=== PATIENT | female | born 2000 | race American Indian/Alaskan Native ===

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

== ENCOUNTER 2021-02-27 15:33 | Inpatient (IN) | payer MEDICAID ==
[2021-02-27] MEDS ORDERED: HYDROmorphone 0.5 MG/0.5 ML Syringe IVPUSH ONE (15:52)
--- NOTE | 2021-02-27 15:58 | EDM.PDOC ---
ED HPI GENERAL MEDICAL PROBLEM - General Chief Complaint: Abdominal Pain Stated Complaint: MEDICAL VIA NORTH Time Seen by Provider: 02/27/21 15:40 Source of Information: Reports: Patient, EMS History Limitations: Reports: No Limitations - History of Present Illness INITIAL COMMENTS - FREE TEXT/NARRATIVE: 20 yo NA female presents via EMS with RUQ abdominal pain that began several hrs after eating several large brownies. She has a pHx of biliary colic. She vomited once since the onset between 7 and 8 am today. No hematemesis. Onset: Today, Sudden Onset Date: 02/27/21 Onset Time: 07:30 Duration: Hour(s):, Constant Location: Reports: Abdomen (RUQ) Quality: Reports: Ache Severity: Moderate Improves with: Reports: Medication (Got transiet full relief with 100 mcg of Fentanyl per EMS) Worsens with: Reports: Other (unsure) Context: Reports: Other (See HPI) Associated Symptoms: Reports: Nausea/Vomiting. 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: Reports: Other (see below) (IV Fentanyl) - Related Data Allergies Allergy/AdvReac Type Severity Reaction Status Date / Time No Known Allergies Allergy Verified 02/27/21 15:51 Home Meds: Home Meds Etonogestrel [Nexplanon] 68 mg SQ DAILY 05/04/20 [History] Past Medical History - Past Health History Medical/Surgical History: Denies Medical/Surgical History Psychiatric History: Reports: Suicide Attempt - Past Surgical History HEENT Surgical History: Reports: Myringotomy w Tube(s) Social & Family History - Caffeine Use Caffeine Use Comment: unknown ED ROS GENERAL - Review of Systems Review Of Systems: See Below Constitutional: Reports: No Symptoms HEENT: Reports: No Symptoms Respiratory: Reports: No Symptoms Cardiovascular: Reports: No Symptoms GI/Abdominal: Reports: Abdominal Pain, Nausea, Vomiting (x 1). Denies: Black Stool, Bloody Stool, Constipation, Diarrhea, Distension, Hematemesis, Hematochezia, Melena : Reports: No Symptoms Musculoskeletal: Reports: No Symptoms Skin: Reports: No Symptoms Neurological: Reports: No Symptoms ED EXAM, GI/ABD - Physical Exam Exam: See Below Exam Limited By: No Limitations General Appearance: Alert, WD/WN, No Apparent Distress Eyes: Bilateral: Normal Appearance Ears: Normal External Exam, Normal Canal, Hearing Grossly Normal Nose: Normal Inspection, No Blood Throat/Mouth: Normal Inspection, Normal Lips, Normal Oropharynx, Normal Voice, No Airway Compromise Head: Atraumatic, Normocephalic Neck: Normal Inspection Respiratory/Chest: No Respiratory Distress, Lungs Clear, Normal Breath Sounds, No Accessory Muscle Use Cardiovascular: Regular Rate, Rhythm, No Edema GI/Abdominal Exam: Normal Bowel Sounds, Soft, Non-Tender, No Distention Back Exam: Normal Inspection. No: CVA Tenderness (R), CVA Tenderness (L) Extremities: Normal Inspection, Normal Range of Motion, Non-Tender, No Pedal Edema. No: Pedal Edema Neurological: Alert, Oriented, CN II-XII Intact, Normal Cognition, No Motor/Sensory Deficits Psychiatric: Normal Affect, Normal Mood Skin Exam: Warm, Dry, Intact, Normal Color, No Rash Course - Vital Signs Text/Narrative:: Dr. Brennan Moran called @ [id number] Last Recorded V/S: Last Vital Signs Temp 36.4 C 02/27/21 15:57 Pulse 66 02/27/21 15:57 Resp 18 02/27/21 15:57 BP 146/91 H 02/27/21 15:57 Pulse Ox 97 02/27/21 15:57 - Orders/Labs/Meds Orders: Active Orders 24 hr Category Date Time Status Abdomen Ltd [US] Stat Exams 02/27/21 16:22 Ordered Labs: Laboratory Tests 02/27/21 02/27/21 02/27/21 Range/Units 15:57 16:05 16:05 WBC 10.2 (4.5-11.0) K/uL RBC 5.03 (3.30-5.50) M/uL Hgb 14.9 (12.0-15.0) g/dL Hct 44.4 (36.0-48.0) % MCV 88 (80-98) fL MCH 30 (27-31) pg MCHC 34 (32-36) % Plt Count 407 H (150-400) K/uL Sodium 143 (140-148) mmol/L Potassium 3.9 (3.6-5.2) mmol/L Chloride 105 (100-108) mmol/L Carbon Dioxide 24 (21-32) mmol/L Anion Gap 13.7 (5.0-14.0) mmol/L BUN 6 L (7-18) mg/dL Creatinine 0.6 (0.6-1.0) mg/dL Est Cr Clr Drug Dosing 152.13 mL/min Estimated GFR (MDRD) > 60 (>60) Glucose 102 (74-106) mg/dL Calcium 8.9 (8.5-10.1) mg/dL Total Bilirubin 0.4 D (0.2-1.0) mg/dL AST 30 (15-37) U/L ALT 33 (12-78) U/L Alkaline Phosphatase 96 (46-116) U/L C-Reactive Protein (0.0-0.3) mg/dL Total Protein 7.5 (6.4-8.2) g/dL Albumin 3.4 (3.4-5.0) g/dL Globulin 4.1 H (2.3-3.5) g/dL Albumin/Globulin Ratio 0.8 L (1.2-2.2) Lipase (73-393) U/L Urine HCG, Qual Negative 02/27/21 Range/Units 16:05 WBC (4.5-11.0) K/uL RBC (3.30-5.50) M/uL Hgb (12.0-15.0) g/dL Hct (36.0-48.0) % MCV (80-98) fL MCH (27-31) pg MCHC (32-36) % Plt Count (150-400) K/uL Sodium (140-148) mmol/L Potassium (3.6-5.2) mmol/L Chloride (100-108) mmol/L Carbon Dioxide (21-32) mmol/L Anion Gap (5.0-14.0) mmol/L BUN (7-18) mg/dL Creatinine (0.6-1.0) mg/dL Est Cr Clr Drug Dosing mL/min Estimated GFR (MDRD) (>60) Glucose (74-106) mg/dL Calcium (8.5-10.1) mg/dL Total Bilirubin (0.2-1.0) mg/dL AST (15-37) U/L ALT (12-78) U/L Alkaline Phosphatase (46-116) U/L C-Reactive Protein 0.95 H (0.0-0.3) mg/dL Total Protein (6.4-8.2) g/dL Albumin (3.4-5.0) g/dL Globulin (2.3-3.5) g/dL Albumin/Globulin Ratio (1.2-2.2) Lipase 75 (73-393) U/L Urine HCG, Qual Meds: Medications Discontinued Medications Generic Name Dose Route Start Last Admin Trade Name Ignacio PRN Reason Stop Dose Admin Hydromorphone HCl 0.5 mg 02/27/21 15:52 02/27/21 16:17 Hydromorphone 0.5 Mg/0.5 Ml Syringe IVPUSH 02/27/21 15:53 0.5 mg ONETIME ONE Administration - Radiology Interpretation Free Text/Narrative:: GB ultrasound-stones, no impaction, common duct slightly increased in size. Departure - Departure Time of Disposition: 17:25 Disposition: Admitted As Inpatient 67 Condition: Fair Clinical Impression: Biliary colic - Discharge Information *PRESCRIPTION DRUG MONITORING PROGRAM REVIEWED*: Not Applicable *COPY OF PRESCRIPTION DRUG MONITORING REPORT IN PATIENT SVETA: Not Applicable Instructions: Biliary Colic, Adult Referrals: PCP,None [Primary Care Provider] - Forms: ED Department Discharge Sepsis Event Note (ED) - Focused Exam Vital Signs: Vital Signs Temp Pulse Resp BP Pulse Ox 02/27/21 15:57 36.4 C 66 18 146/91 H 97 02/27/21 15:53 36.4 C 66 18 146/91 H 97 - My Orders Last 24 Hours: My Active Orders 02/27/21 16:22 Abdomen Ltd [US] Stat - Assessment/Plan Last 24 Hours: My Active Orders 02/27/21 16:22 Abdomen Ltd [US] Stat
[2021-02-27] MEDS ORDERED: Ondansetron 4 MG/2 ML SDV IVPUSH PRN (18:10)
[2021-02-27] MEDS ORDERED: Ampicillin/Sulbactam Na 3 GM in Sodium Chloride 0.9% 100 ML IV SCH (18:15)
[2021-02-27] MEDS: Dextrose 5%-Lactated Ringers 1,000 ML IV SCH (18:42)
[2021-02-27] MEDS: HYDROmorphone 1 MG/ML Syringe IV PRN (18:45)
[2021-02-27 22:39] LABS: CORONAVIRUS COVID-19 NAA NEGATIVE (NEGATIVE)
[2021-02-28] MEDS: HYDROmorphone 1 MG/ML Syringe IV PRN ×2 (02:12→05:59)
[2021-02-28] MEDS: Dextrose 5%-Lactated Ringers 1,000 ML IV SCH (03:18)
[2021-02-28] MEDS ORDERED: Bupivacaine 0.5%/EPINEPHrine 1:200,000 50 ML MDV ONE (07:08)
[2021-02-28] MEDS ORDERED: Rocuronium 50 MG/5 ML Vial ONE (07:19)
[2021-02-28] MEDS ORDERED: Propofol 200 MG/20 ML SDV ONE (07:19)
[2021-02-28] MEDS ORDERED: Ondansetron 4 MG/2 ML SDV ONE (07:19)
[2021-02-28] MEDS ORDERED: Neostigmine Methylsulfate 1 MG/ML 5 ML Syringe ONE (07:19)
[2021-02-28] MEDS ORDERED: Succinylcholine 200 MG/10 ML MDV ONE (07:19)
[2021-02-28] MEDS ORDERED: Glycopyrrolate 0.2 MG/ML 5 ML MDV ONE (07:19)
[2021-02-28] MEDS ORDERED: Dexamethasone 4 MG/ML SDV ONE (07:19)
[2021-02-28] MEDS ORDERED: fentaNYL 250 MCG/5 ML SDV ONE ×2 (07:21→08:43)
[2021-02-28] MEDS ORDERED: Ampicillin/Sulbactam Na 3 GM in Sodium Chloride 0.9% 100 ML IV ONE (08:00)
[2021-02-28] MEDS ORDERED: Ketorolac 60 MG/2 ML SDV ONE (08:59)
[2021-02-28] MEDS ORDERED: Lactated Ringers 1,000 ML ONE (09:05)
[2021-02-28] MEDS ORDERED: Dextrose 5%-Lactated Ringers 1,000 ML IV SCH (10:30)
[2021-02-28] MEDS ORDERED: HYDROmorphone 1 MG/ML Syringe IV PRN (11:00)
[2021-02-28] MEDS ORDERED: HYDROmorphone 0.5 MG/0.5 ML Syringe IVPUSH PRN (11:00)
[2021-02-28] MEDS: Acetaminophen/HYDROcodone 325-5 MG Tab PO PRN ×3 (11:36→20:38)
[2021-02-28] MEDS: Ampicillin/Sulbactam Na 3 GM in Sodium Chloride 0.9% 100 ML IV SCH ×2 (13:22→19:55)
[2021-02-28] MEDS ORDERED: Pantoprazole 40 MG Vial IVPUSH SCH (14:00)
[2021-03-01] MEDS: Ampicillin/Sulbactam Na 3 GM in Sodium Chloride 0.9% 100 ML IV SCH (02:21)
[2021-03-01 03:30] VITALS: BP 124/44; PULSE 68
[2021-03-01] MEDS: Acetaminophen/HYDROcodone 325-5 MG Tab PO PRN (05:31)
--- NOTE | 2021-03-02 09:02 | US ---
Abdomen Ltd CLINICAL HISTORY: Right upper quadrant pain COMPARISON: April 2020. TECHNIQUE: Real-time images were obtained through the right upper quadrant. FINDINGS: The liver is free of mass or biliary dilatation. There is normal hepatic echotexture. There is upper limits of normal size at 16 cm in length The gallbladder contains multiple mobile stones. The common bile duct measures 6 mm. The pancreas is moderately obscured. The right kidney measures 11.3 x 4.0 x 5.0 cm. The IVC is normal. IMPRESSION: Cholelithiasis Common bile duct measures at upper limits of normal at 6 mm
--- NOTE | 2021-03-06 16:37 | DISCH ---
FINAL DIAGNOSES: 1. Subacute cholecystitis and cholelithiasis. 2. Enlarged shonna hepatis lymph node. 3. Incarcerated umbilical hernia. OPERATIVE PROCEDURES: Diagnostic laparoscopy with: 1. Cholecystectomy. 2. Excision of enlarged shonna hepatis lymph node. 3. Repair of incarcerated umbilical hernia that was done on 02/28. SUMMARY: This is a 20-year-old female presenting with ongoing right upper quadrant pain. Workup showed a thickened gallbladder wall with stones. The patient was admitted on IV antibiotics and subsequently underwent the above-noted procedures. The gallbladder was subacutely inflamed and contained multitude of variably sized stones, and there was enlarged lymph node in the shonna hepatis that was excised and the incarcerated umbilical hernia was likewise identified and repaired concurrently. Postoperatively, the patient has had no significant problems. She is tolerating a diet and will be sent home with [place] 5/325 one to two tablets q.6 hours p.r.n. pain #30. Follow up with Terese Whipple at [facility] on 03/09/2021. /[id number]
--- NOTE | 2021-03-09 15:48 | OR ---
DATE OF PROCEDURE: 02/28/2021 SURGEON: Rei Moran MD PREOPERATIVE DIAGNOSIS: Acute cholecystitis and cholelithiasis. POSTOPERATIVE DIAGNOSES: 1. Subacute cholecystitis and cholelithiasis. 2. Incarcerated umbilical hernia. 3. Enlarged shonna hepatis lymph node. OPERATIVE PROCEDURES: Diagnostic laparoscopy with: 1. Cholecystectomy (89214). 2. Excision of shonna hepatis lymph node (80915). 3. Repair of incarcerated umbilical hernia ([id number]). ANESTHESIA: General. INDICATIONS FOR PROCEDURE: This is a 20-year-old admitted with a picture of acute or subacute cholecystitis. The plan is to proceed with diagnostic laparoscopy with cholecystectomy and other procedures as indicated. Potential need for an open approach was gone over, otherwise potential risks including bleeding, infection, injury to the common bile duct or adjacent viscera, problems with stones migrating into common bile duct requiring additional procedures for correction were gone over, and the patient wishes to proceed. DETAILS OF PROCEDURE: The patient was taken to the operating room and placed in a supine position. After general endotracheal anesthesia was induced, the abdomen was prepped and draped. A transverse infraumbilical incision was noted to have underlying it an area of incarcerated umbilical hernia, this contained some incarcerated preperitoneal fat. A 12 mm trocar was then placed directly through the center of the hernia, thus displacing the incarcerated preperitoneal fat into intraperitoneal location. Peritoneal cavity was inflated with 15 mmHg with CO2. Laparoscope was reinserted. No underlying trocar insertion site injuries were seen. A 12 mm epigastric trocar as well as single 5 mm right abdominal trocar was then placed. Bilateral transversus abdominis plane blocks were then also injected and the gallbladder then retracted anteriorly and laterally. Posterior to the gallbladder, there was quite a bit of inflammation, but no significant fluid accumulation. Over the shonna hepatis area, there was an enlarged reddened lymph node, this was excised and sent as a separate specimen. At this point, the gallbladder was retracted anteriorly and laterally, and dissection began on the gallbladder neck, continued around the gallbladder neck and cystic duct junction. Once that area as well as the adjacent cystic artery were both well delineated, we decided to take both structures with a surgical stapler. As the tissues were quite thickened and friable, this would provide a more secure closure. This was done with a NANO purple load. The gallbladder was then dissected off the gallbladder bed using Harmonic scalpel and delivered through the epigastric trocar site. Multiple small stones were present within the gallbladder. At this point, no further problems were noted. A drain was placed through the right lateral trocar site and positioned adjacent to the gallbladder bed and the camera port then brought back up to the epigastric site where the umbilical hernia sutures were placed with the endoscopic suture passer using 0 Vicryl stitch closing the umbilical hernia defect with transverse orientation. An additional stitch was then placed into the fascia in the epigastric site and the trocars were removed and the peritoneal cavity deflated. The incisions were closed with some 4-0 Vicryl skin stitch and dressing applied. The patient was taken to the recovery room in a satisfactory condition. Rei Moran MD /[id number]
== END 2021-03-01 08:40 | disposition home or self-care (01) | DRG 418 ==
LOC: JP.ED 15:33 → JP.MS 17:30
PROVIDERS: ADMIT Surgery; ATTEND Surgery
PROC: 0FT44ZZ Resection of Gallbladder, Percutaneous Endoscopic Approach (ICD-10-PCS; principal; 2021-02-28)
PROC: 0WQF4ZZ Repair Abdominal Wall, Percutaneous Endoscopic Approach (ICD-10-PCS; 2021-02-28)
PROC: 07BD4ZZ Excision of Aortic Lymphatic, Percutaneous Endoscopic Approach (ICD-10-PCS; 2021-02-28)
DX: K80.00 Calculus of gallbladder with acute cholecystitis without obstruction (principal); K42.0 Umbilical hernia with obstruction, without gangrene; Z79.899 Other long term (current) drug therapy; Z20.822 Contact with and (suspected) exposure to COVID-19; R59.0 Localized enlarged lymph nodes
CPT/HCPCS: 0241U; 36415; 76705; 76705-26; 80053; 81025; 82247; 83690; 84075; 85025; 85027; 86140; 88304; 96374; 99284; 99285-25; A9270-GY; C9113; J0171; J0295; J0330; J1100; J1170; J1885; J2405; J2704; J2710; J2795; J3010; J3490; J7120; J7121

== ENCOUNTER 2021-10-21 23:42 | Emergency (ER) | payer MEDICAID ==
[2021-10-22 00:08] VITALS: BP 112/71
--- NOTE | 2021-10-22 00:15 | EDM.PDOC ---
ED HPI GENERAL MEDICAL PROBLEM - General Chief Complaint: Drug or Alcohol Abuse Stated Complaint: MEDICAL VIA NORTH Time Seen by Provider: 10/22/21 00:00 Source of Information: Reports: EMS, Old Records History Limitations: Reports: Intoxication - History of Present Illness INITIAL COMMENTS - FREE TEXT/NARRATIVE: 21 yo NA female brought in from home by EMS for extreme intoxication. Family mentioned she was in a bathtub that did not have water in it. They don't know if she fell into it or just crawled in? EMS noted no sign of scalp wounds or swelling en route. Vitals were reportedly normal. Has a hx of alcohol abuse. 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: Reports: Other (see below) (none) Headache Pain Score (Numeric/FACES): 6 - Related Data Allergies Allergy/AdvReac Type Severity Reaction Status Date / Time No Known Allergies Allergy Verified 10/21/21 23:53 Home Meds: Home Meds Etonogestrel [Nexplanon] 68 mg SQ DAILY 05/04/20 [History] Past Medical History - Past Health History Medical/Surgical History: Denies Medical/Surgical History HEENT History: Reports: Impaired Vision Psychiatric History: Reports: Suicide Attempt Endocrine/Metabolic History: Reports: Obesity/BMI 30+ - Past Surgical History Head Surgeries/Procedures: Reports: None HEENT Surgical History: Reports: Myringotomy w Tube(s) Endocrine Surgical History: Reports: None Dermatological Surgical History: Reports: None Social & Family History - Caffeine Use Caffeine Use: Reports: Coffee, Energy Drinks, Soda, Tea Caffeine Use Comment: unknown - Alcohol Use Date of Last Drink: 10/21/21 Time of Last Drink: 23:00 ED ROS GENERAL - Review of Systems Review Of Systems: Unable To Obtain Reason Not Obtained: due to extreme intoxication Constitutional: Reports: No Symptoms ED EXAM, GENERAL - Physical Exam Exam: See Below Exam Limited By: No Limitations General Appearance: WD/WN, No Apparent Distress, Lethargic, Obese Eye Exam: Bilateral Eye: Normal Inspection, PERRL Ears: Normal External Exam, Normal Canal, Hearing Grossly Normal, Normal TMs Ear Exam: Bilateral Ear: Auricle Normal, Canal Normal, TM normal Nose: Normal Inspection, No Blood Throat/Mouth: Normal Inspection, Normal Lips, Normal Voice, No Airway Compromise Head: Atraumatic, Normocephalic Neck: Normal Inspection, Supple, Non-Tender Respiratory/Chest: No Respiratory Distress, Lungs Clear, Normal Breath Sounds, No Accessory Muscle Use Cardiovascular: Regular Rate, Rhythm, No Edema GI/Abdominal: Soft, Non-Tender Back Exam: Normal Inspection Extremities: Normal Inspection, Normal Range of Motion, Non-Tender, No Pedal Edema Neurological: CN II-XII Intact, No Motor/Sensory Deficits, Slow to Respond Psychiatric: Flat Affect Skin Exam: Warm, Dry, Intact, Normal Color, No Rash Course - Vital Signs Last Recorded V/S: Last Vital Signs Temp 36.9 C 10/21/21 23:53 Pulse 84 10/22/21 03:27 Resp 18 10/22/21 03:27 BP 112/71 10/21/21 23:53 Pulse Ox 94 L 10/22/21 03:27 - Orders/Labs/Meds Orders: Active Orders 24 hr Category Date Time Status DRUG SCREEN, URINE [URCHEM] Stat Lab 10/22/21 00:13 Ordered Labs: Laboratory Tests 10/21/21 Range/Units 23:55 Ethyl Alcohol 198 mg/dL - Re-Assessments/Exams Free Text/Narrative Re-Assessment/Exam: 10/22/21 06:07 Is up and walking about the ER this AM with no complaints and is steady on her feet. Will call her sister to come and pick her up. Departure - Departure Time of Disposition: 07:00 Disposition: Home, Self-Care 01 Condition: Fair Clinical Impression: Alcohol intoxication Qualifiers: Complication of substance-induced condition: uncomplicated Qualified Code(s): F10.920 - Alcohol use, unspecified with intoxication, uncomplicated - Discharge Information *PRESCRIPTION DRUG MONITORING PROGRAM REVIEWED*: Not Applicable *COPY OF PRESCRIPTION DRUG MONITORING REPORT IN PATIENT SVETA: Not Applicable Instructions: Binge-Drinking Information, Adult Referrals: PCP,None [Primary Care Provider] - Forms: ED Department Discharge Additional Instructions: Learn to control your alcohol use or you will face injury or illness. Discuss with your doctor if you are not able to control alcohol use. Sepsis Event Note (ED) - Evaluation Sepsis Screening Result: No Definite Risk - Focused Exam Vital Signs: Vital Signs Temp Pulse Resp BP Pulse Ox 10/22/21 03:27 84 18 94 L 10/21/21 23:53 36.9 C 80 18 112/71 91 L - My Orders Last 24 Hours: My Active Orders 10/22/21 00:13 DRUG SCREEN, URINE [URCHEM] Stat - Assessment/Plan Last 24 Hours: My Active Orders 10/22/21 00:13 DRUG SCREEN, URINE [URCHEM] Stat
[2021-10-22 03:27] VITALS: PULSE 84
== END 2021-10-22 06:24 | disposition home or self-care (01) ==
LOC: JP.ED 23:42
DX: F10.129 Alcohol abuse with intoxication, unspecified (principal); E66.9 Obesity, unspecified; Z68.30 Body mass index [BMI] 30.0-30.9, adult; Y90.6 Blood alcohol level of 120-199 mg/100 ml
CPT/HCPCS: 36415; 80305-QW; 80307; 99284

== ENCOUNTER 2021-12-26 20:18 | Emergency (ER) | payer MEDICAID ==
[2021-12-26 20:39] VITALS: BP 152/102; PULSE 84
[2021-12-26] MEDS ORDERED: Lidocaine 4% Top Soln 50 ML Bottle TOP ONE (20:57)
== END 2021-12-26 21:50 | disposition home or self-care (01) ==
LOC: JP.ED 20:18
DX: H66.001 Acute suppurative otitis media without spontaneous rupture of ear drum, right ear (principal)
CPT/HCPCS: 99282; A9270-GY

== ENCOUNTER 2022-09-20 05:19 | Emergency (ER) | payer MEDICAID ==
[2022-09-20 05:39] VITALS: BP 115/97; PULSE 99
== END 2022-09-20 07:23 | disposition home or self-care (01) ==
LOC: JP.ED 05:19
DX: F10.129 Alcohol abuse with intoxication, unspecified (principal); F17.210 Nicotine dependence, cigarettes, uncomplicated; E66.9 Obesity, unspecified; Z68.30 Body mass index [BMI] 30.0-30.9, adult
CPT/HCPCS: 36415; 80048; 80307; 85025; 99284

== ENCOUNTER 2023-09-18 18:29 | Emergency (ER) | payer MEDICAID ==
[2023-09-18 18:38] VITALS: BP 117/80; PULSE 103
[2023-09-18 20:37] LABS: BASOPHILS ABSOLUTE AUTO 0.04 K/uL (0.00-0.10); BASOPHILS PERCENT AUTO 0.6 % (0.1-1.3); EOSINOPHILS ABSOLUTE AUTO 0.04 K/uL (0.00-0.40); EOSINOPHILS PERCENT AUTO 0.6 % (0.0-5.4); HEMATOCRIT 38.9 % (34.3-46.0); HEMOGLOBIN 13.4 g/dL (11.2-15.5); IMMATURE GRAN PERCENT AUTO 0.3 % (0.0-0.7); LYMPHOCYTES ABSOLUTE AUTO 2.41 K/uL (0.8-3.3); LYMPHOCYTES PERCENT AUTO 35.7 % (11.4-47.7); MEAN CORPUSCULAR HEMOGLOBIN 30.8 pg (31.6-35.5); MEAN CORPUSCULAR HGB CONC 34.4 g/dL (31.6-35.5); MEAN CORPUSCULAR VOLUME 89.4 fL (81.4-99.0); MONOCYTES ABSOLUTE AUTO 0.24 K/uL (0.20-0.90); MONOCYTES PERCENT AUTO 3.6 % (3.3-12.6); NEUTROPHILS ABSOLUTE AUTO 4.01 K/uL (1.0-7.6); NEUTROPHILS PERCENT AUTO 59.2 % (40.0-78.1); PLATELET COUNT,PLT 358 K/uL (130-375); RED BLOOD CELL COUNT 4.35 M/uL (3.77-5.24); WHITE BLOOD CELL COUNT,WBC 6.8 K/uL (3.2-11.0)
[2023-09-18 20:39] LABS: IMMATURE GRAN ABSOLUTE AUTO 0.02 K/uL (0.00-0.23)
[2023-09-18 20:57] LABS: ANION GAP 7.5 mmol/L (5.0-14.0); CALCIUM 7.5 mg/dL (8.5-10.1); CREATININE 0.4 mg/dL (0.6-1.0); EST CRCL DRUG DOSING (CG) 222.54 mL/min; POTASSIUM,K 3.9 mmol/L (3.6-5.2)
== END 2023-09-19 | disposition home or self-care (01) ==
LOC: JP.ED 18:29
DX: F10.920 Alcohol use, unspecified with intoxication, uncomplicated (principal); F17.210 Nicotine dependence, cigarettes, uncomplicated; E66.9 Obesity, unspecified; Z68.25 Body mass index [BMI] 25.0-25.9, adult; Y90.6 Blood alcohol level of 120-199 mg/100 ml
CPT/HCPCS: 36415; 80048; 80307; 85025; 99284

== ENCOUNTER 2024-11-26 21:36 | Emergency (ER) | payer MEDICAID ==
[2024-11-26 22:12] VITALS: BP 146/99; PULSE 83
[2024-11-26] MEDS: Bupivacaine 0.5%/EPINEPHrine 1:200,000 50 ML MDV NERVRT ONE (22:25)
[2024-11-26] MEDS: Bupivacaine 0.5%/EPINEPHrine 1:200,000 50 ML MDV ONE (22:25)
== END 2024-11-26 22:25 | disposition home or self-care (01) ==
LOC: JP.ED 21:36
DX: K04.7 Periapical abscess without sinus (principal); E66.9 Obesity, unspecified; Z68.34 Body mass index [BMI] 34.0-34.9, adult; Z72.0 Tobacco use
CPT/HCPCS: 64400; 99282; J3490

== ENCOUNTER 2024-11-27 12:05 | Emergency (ER) | payer MEDICAID | END 2024-11-27 12:45 | disposition left against medical advice (07) | LOC: JP.ED 12:05 | DX: Z53.21 Procedure and treatment not carried out due to patient leaving prior to being seen by health care provider (principal) ==

== ENCOUNTER 2024-11-27 13:02 | Emergency (ER) | payer MEDICAID ==
[2024-11-27 13:39] VITALS: BP 168/99; PULSE 83
[2024-11-27] MEDS: fentaNYL 100 MCG/2 ML SDV IM ONE (14:10)
== END 2024-11-27 14:39 | disposition home or self-care (01) ==
LOC: JP.ED 13:02
DX: K08.89 Other specified disorders of teeth and supporting structures (principal); G89.29 Other chronic pain; E66.9 Obesity, unspecified; Z68.31 Body mass index [BMI] 31.0-31.9, adult
CPT/HCPCS: 96372; 99282; J3010

== ENCOUNTER 2025-02-12 23:00 | Emergency (ER) | payer MEDICAID ==
[2025-02-13 01:57] LABS: BASOPHILS ABSOLUTE AUTO 0.06 K/uL (0.00-0.10); BASOPHILS PERCENT AUTO 0.7 % (0.1-1.3); EOSINOPHILS ABSOLUTE AUTO 0.12 K/uL (0.00-0.40); EOSINOPHILS PERCENT AUTO 1.4 % (0.0-5.4); HEMATOCRIT 37.7 % (34.3-46.0); HEMOGLOBIN 13.2 g/dL (11.2-15.5); IMMATURE GRAN ABSOLUTE AUTO 0.02 K/uL (0.00-0.23); IMMATURE GRAN PERCENT AUTO 0.2 % (0.0-0.7); LYMPHOCYTES ABSOLUTE AUTO 2.81 K/uL (0.8-3.3); LYMPHOCYTES PERCENT AUTO 33.5 % (11.4-47.7); MEAN CORPUSCULAR HEMOGLOBIN 30.6 pg (31.6-35.5); MEAN CORPUSCULAR VOLUME 87.5 fL (81.4-99.0); MONOCYTES ABSOLUTE AUTO 0.51 K/uL (0.20-0.90); MONOCYTES PERCENT AUTO 6.1 % (3.3-12.6); NEUTROPHILS ABSOLUTE AUTO 4.88 K/uL (1.0-7.6); NEUTROPHILS PERCENT AUTO 58.1 % (40.0-78.1); PLATELET COUNT,PLT 305 K/uL (130-375); RED BLOOD CELL COUNT 4.31 M/uL (3.77-5.24); WHITE BLOOD CELL COUNT,WBC 8.4 K/uL (3.2-11.0)
[2025-02-13 02:03] VITALS: BP 128/80; PULSE 80
[2025-02-13 05:10] LABS: ANION GAP 9.7 mmol/L (5.0-14.0); BLOOD UREA NITROGEN,BUN 9 mg/dL (7-18); C-REACTIVE PROTEIN < 0.50 mg/dL (<0.50); CALCIUM 8.6 mg/dL (8.5-10.1); CARBON DIOXIDE,CO2 28 mmol/L (21-32); CHLORIDE,CL 105 mmol/L (100-108); CREATININE 0.6 mg/dL (0.6-1.0); EST CRCL DRUG DOSING (CG) 141.81 mL/min; ESTIMATED GFR 129 mL/min (>60); GLUCOSE RANDOM 107 mg/dL (74-106); POTASSIUM,K 3.7 mmol/L (3.6-5.2); SODIUM,NA 139 mmol/L (140-148)
== END 2025-02-13 03:00 | disposition home or self-care (01) ==
LOC: JP.ED 23:00
DX: F41.9 Anxiety disorder, unspecified (principal); E66.9 Obesity, unspecified; F17.210 Nicotine dependence, cigarettes, uncomplicated
CPT/HCPCS: 36415; 80048; 85025; 86140; 99283

== ENCOUNTER 2025-06-13 15:20 | Emergency (ER) | payer MEDICAID ==
[2025-06-13 16:04] LABS: BASOPHILS ABSOLUTE AUTO 0.04 K/uL (0.00-0.10); BASOPHILS PERCENT AUTO 0.5 % (0.1-1.3); EOSINOPHILS ABSOLUTE AUTO 0.07 K/uL (0.00-0.40); EOSINOPHILS PERCENT AUTO 0.8 % (0.0-5.4); IMMATURE GRAN ABSOLUTE AUTO 0.04 K/uL (0.00-0.23); IMMATURE GRAN PERCENT AUTO 0.5 % (0.0-0.7); LYMPHOCYTES ABSOLUTE AUTO 1.82 K/uL (0.8-3.3); LYMPHOCYTES PERCENT AUTO 20.6 % (11.4-47.7); MONOCYTES ABSOLUTE AUTO 0.37 K/uL (0.20-0.90); MONOCYTES PERCENT AUTO 4.2 % (3.3-12.6); NEUTROPHILS ABSOLUTE AUTO 6.49 K/uL (1.0-7.6); NEUTROPHILS PERCENT AUTO 73.4 % (40.0-78.1); PLATELET COUNT,PLT 322 K/uL (130-375); RED BLOOD CELL COUNT 4.60 M/uL (3.77-5.24); WHITE BLOOD CELL COUNT,WBC 8.8 K/uL (3.2-11.0)
[2025-06-13 16:25] LABS: A/G RATIO 0.9 (1.2-2.2); ALANINE AMINOTRANSFERASE,ALT 25 U/L (12-78); ASPARTATE AMNIOTRANSFERASE,AST 18 U/L (15-37); BILIRUBIN TOTAL 0.3 mg/dL (0.2-1.0); BLOOD UREA NITROGEN,BUN 7 mg/dL (7-18); CARBON DIOXIDE,CO2 28 mmol/L (21-32); CHLORIDE,CL 103 mmol/L (100-108); CREATININE 0.7 mg/dL (0.6-1.0); ESTIMATED GFR 124 mL/min (>60); GLUCOSE RANDOM 121 mg/dL (74-106); POTASSIUM,K 4.1 mmol/L (3.6-5.2); PROTEIN TOTAL,TP 7.5 g/dL (6.4-8.2); SODIUM,NA 138 mmol/L (140-148)
[2025-06-13 16:39] LABS: AMPHETAMINES SCREEN, URINE PRESUMPTIVE POSITIVE (NEGATIVE); METHADONE SCREEN, URINE NEGATIVE (NEGATIVE); METHAMPHETAMINES SCREEN, URINE PRESUMPTIVE POSITIVE (NEGATIVE); OXYCODONE SCREEN,URINE NEGATIVE (NEGATIVE); PROPOXYPHENE SCREEN,URINE NEGATIVE (NEGATIVE); THC SCREEN,URINE 50 NG/ML PRESUMPTIVE POSITIVE (NEGATIVE)
[2025-06-13 17:09] VITALS: BP 146/82; PULSE 91
== END 2025-06-13 17:42 | disposition home or self-care (01) ==
LOC: JP.ED 15:20
DX: F15.10 Other stimulant abuse, uncomplicated (principal); E66.9 Obesity, unspecified; Z68.31 Body mass index [BMI] 31.0-31.9, adult; Z79.899 Other long term (current) drug therapy
CPT/HCPCS: 36415; 80053; 80305-QW; 80307; 81025; 85025; 99282

== ENCOUNTER 2025-07-07 21:53 | Emergency (ER) | payer MEDICAID ==
[2025-07-07 22:03] VITALS: BP 135/89; PULSE 105
[2025-07-07 22:32] LABS: BASOPHILS ABSOLUTE AUTO 0.06 K/uL (0.00-0.10); BASOPHILS PERCENT AUTO 0.6 % (0.1-1.3); EOSINOPHILS ABSOLUTE AUTO 0.09 K/uL (0.00-0.40); EOSINOPHILS PERCENT AUTO 0.9 % (0.0-5.4); IMMATURE GRAN ABSOLUTE AUTO 0.03 K/uL (0.00-0.23); IMMATURE GRAN PERCENT AUTO 0.3 % (0.0-0.7); LYMPHOCYTES ABSOLUTE AUTO 2.37 K/uL (0.8-3.3); LYMPHOCYTES PERCENT AUTO 23.0 % (11.4-47.7); MONOCYTES ABSOLUTE AUTO 0.61 K/uL (0.20-0.90); MONOCYTES PERCENT AUTO 5.9 % (3.3-12.6); NEUTROPHILS ABSOLUTE AUTO 7.13 K/uL (1.0-7.6); NEUTROPHILS PERCENT AUTO 69.3 % (40.0-78.1); PLATELET COUNT,PLT 353 K/uL (130-375); RED BLOOD CELL COUNT 4.51 M/uL (3.77-5.24); WHITE BLOOD CELL COUNT,WBC 10.3 K/uL (3.2-11.0)
[2025-07-07 22:38] LABS: APPEARANCE,URINE CLOUDY (CLEAR); GLUCOSE,URINE NEGATIVE (NEGATIVE); OCCULT BLOOD,URINE NEGATIVE (NEGATIVE)
[2025-07-07] MEDS: Ketorolac 15 MG/ML SDV IVPUSH ONE (22:40)
[2025-07-07 22:47] LABS: SQUAMOUS EPITHELIAL CELLS,UR FEW /HPF; UROTHELIAL CELLS,URINE NOT SEEN /HPF
[2025-07-07 22:57] LABS: A/G RATIO 0.9 (1.2-2.2); ALANINE AMINOTRANSFERASE,ALT 20 U/L (12-78); ASPARTATE AMNIOTRANSFERASE,AST 14 U/L (15-37); BILIRUBIN TOTAL 0.3 mg/dL (0.2-1.0); BLOOD UREA NITROGEN,BUN 14 mg/dL (7-18); CARBON DIOXIDE,CO2 30 mmol/L (21-32); CHLORIDE,CL 104 mmol/L (100-108); CREATININE 0.8 mg/dL (0.6-1.0); EST CRCL DRUG DOSING (CG) 105.45 mL/min; ESTIMATED GFR 105 mL/min (>60); GLUCOSE RANDOM 102 mg/dL (74-106); POTASSIUM,K 4.2 mmol/L (3.6-5.2); PROTEIN TOTAL,TP 7.3 g/dL (6.4-8.2); SODIUM,NA 141 mmol/L (140-148)
[2025-07-07 23:28] LABS: AMPHETAMINES SCREEN, URINE PRESUMPTIVE POSITIVE (NEGATIVE); METHADONE SCREEN, URINE NEGATIVE (NEGATIVE); METHAMPHETAMINES SCREEN, URINE PRESUMPTIVE POSITIVE (NEGATIVE); OXYCODONE SCREEN,URINE NEGATIVE (NEGATIVE); PROPOXYPHENE SCREEN,URINE NEGATIVE (NEGATIVE); THC SCREEN,URINE 50 NG/ML PRESUMPTIVE POSITIVE (NEGATIVE)
[2025-07-12 08:32] LABS: APTIMA MEDIA TYPE Urine; C. TRACHOMATIS BY TMA Negative (Negative)
== END 2025-07-08 01:12 | disposition home or self-care (01) ==
LOC: JP.ED 21:53
DX: R10.9 Unspecified abdominal pain (principal); E66.9 Obesity, unspecified; Z68.32 Body mass index [BMI] 32.0-32.9, adult; Z04.41 Encounter for examination and observation following alleged adult rape; Z79.899 Other long term (current) drug therapy
CPT/HCPCS: 36415; 80053; 80305; 81001; 81025; 83690; 85025; 87491; 96361; 96372; 96374; 99284; A9270; J0696; J1885; J2003; J7030; Q0144; 81513; 87110; 87140; 87481; 87661

== ENCOUNTER 2025-08-05 21:09 | Emergency (ER) | payer MEDICAID ==
[2025-08-05 21:20] VITALS: BP 132/77; PULSE 104
[2025-08-05] MEDS: Naloxone 0.4 MG/ML SDV IVPUSH ONE (21:25)
[2025-08-05 21:31] LABS: BASOPHILS ABSOLUTE AUTO 0.05 K/uL (0.00-0.10); BASOPHILS PERCENT AUTO 0.6 % (0.1-1.3); EOSINOPHILS ABSOLUTE AUTO 0.03 K/uL (0.00-0.40); EOSINOPHILS PERCENT AUTO 0.3 % (0.0-5.4); IMMATURE GRAN ABSOLUTE AUTO 0.03 K/uL (0.00-0.23); IMMATURE GRAN PERCENT AUTO 0.3 % (0.0-0.7); LYMPHOCYTES ABSOLUTE AUTO 1.97 K/uL (0.8-3.3); LYMPHOCYTES PERCENT AUTO 22.3 % (11.4-47.7); MONOCYTES ABSOLUTE AUTO 0.61 K/uL (0.20-0.90); MONOCYTES PERCENT AUTO 6.9 % (3.3-12.6); NEUTROPHILS ABSOLUTE AUTO 6.16 K/uL (1.0-7.6); NEUTROPHILS PERCENT AUTO 69.6 % (40.0-78.1); PLATELET COUNT,PLT 317 K/uL (130-375); RED BLOOD CELL COUNT 4.33 M/uL (3.77-5.24); WHITE BLOOD CELL COUNT,WBC 8.9 K/uL (3.2-11.0)
[2025-08-05 21:52] LABS: A/G RATIO 0.9 (1.2-2.2); ALANINE AMINOTRANSFERASE,ALT 19 U/L (12-78); ASPARTATE AMNIOTRANSFERASE,AST 16 U/L (15-37); BILIRUBIN TOTAL 0.2 mg/dL (0.2-1.0); BLOOD UREA NITROGEN,BUN 8 mg/dL (7-18); CARBON DIOXIDE,CO2 30 mmol/L (21-32); CHLORIDE,CL 103 mmol/L (100-108); CREATININE 0.6 mg/dL (0.6-1.0); EST CRCL DRUG DOSING (CG) 140.60 mL/min; ESTIMATED GFR 128 mL/min (>60); GLUCOSE RANDOM 104 mg/dL (74-106); POTASSIUM,K 3.7 mmol/L (3.6-5.2); PROTEIN TOTAL,TP 7.1 g/dL (6.4-8.2); SODIUM,NA 138 mmol/L (140-148)
[2025-08-05 22:01] LABS: APPEARANCE,URINE SLIGHTLY CLOUDY (CLEAR); GLUCOSE,URINE NEGATIVE (NEGATIVE); OCCULT BLOOD,URINE NEGATIVE (NEGATIVE)
[2025-08-05 22:09] LABS: SQUAMOUS EPITHELIAL CELLS,UR FEW /HPF; UROTHELIAL CELLS,URINE NOT SEEN /HPF
[2025-08-05 22:10] LABS: AMPHETAMINES SCREEN, URINE PRESUMPTIVE POSITIVE (NEGATIVE); METHADONE SCREEN, URINE NEGATIVE (NEGATIVE); METHAMPHETAMINES SCREEN, URINE PRESUMPTIVE POSITIVE (NEGATIVE); OXYCODONE SCREEN,URINE NEGATIVE (NEGATIVE); PROPOXYPHENE SCREEN,URINE NEGATIVE (NEGATIVE); THC SCREEN,URINE 50 NG/ML PRESUMPTIVE POSITIVE (NEGATIVE)
== END 2025-08-05 23:18 ==
LOC: JP.ED 21:09
DX: F15.10 Other stimulant abuse, uncomplicated (principal); F13.99 Sedative, hypnotic or anxiolytic use, unspecified with unspecified sedative, hypnotic or anxiolytic-induced disorder; E86.0 Dehydration; E66.9 Obesity, unspecified; Z68.32 Body mass index [BMI] 32.0-32.9, adult; F17.200 Nicotine dependence, unspecified, uncomplicated; Z79.899 Other long term (current) drug therapy
CPT/HCPCS: 36415; 80053; 80305; 80307; 81001; 85025; 96361; 96374; 99284; 99285; J2312; J7030

== ENCOUNTER 2025-08-14 15:08 | Emergency (ER) | payer MEDICAID ==
[2025-08-14 15:59] LABS: APPEARANCE,URINE CLEAR (CLEAR); GLUCOSE,URINE NEGATIVE (NEGATIVE); OCCULT BLOOD,URINE NEGATIVE (NEGATIVE)
[2025-08-14 16:02] LABS: BASOPHILS ABSOLUTE AUTO 0.05 K/uL (0.00-0.10); BASOPHILS PERCENT AUTO 0.6 % (0.1-1.3); EOSINOPHILS ABSOLUTE AUTO 0.07 K/uL (0.00-0.40); EOSINOPHILS PERCENT AUTO 0.9 % (0.0-5.4); IMMATURE GRAN PERCENT AUTO 0.2 % (0.0-0.7); LYMPHOCYTES ABSOLUTE AUTO 1.56 K/uL (0.8-3.3); LYMPHOCYTES PERCENT AUTO 19.0 % (11.4-47.7); MONOCYTES ABSOLUTE AUTO 0.45 K/uL (0.20-0.90); MONOCYTES PERCENT AUTO 5.5 % (3.3-12.6); NEUTROPHILS ABSOLUTE AUTO 6.08 K/uL (1.0-7.6); NEUTROPHILS PERCENT AUTO 73.8 % (40.0-78.1); PLATELET COUNT,PLT 312 K/uL (130-375); RED BLOOD CELL COUNT 4.26 M/uL (3.77-5.24); WHITE BLOOD CELL COUNT,WBC 8.2 K/uL (3.2-11.0)
[2025-08-14 16:03] LABS: IMMATURE GRAN ABSOLUTE AUTO 0.02 K/uL (0.00-0.23)
[2025-08-14 16:05] LABS: AMPHETAMINES SCREEN, URINE PRESUMPTIVE POSITIVE (NEGATIVE); METHADONE SCREEN, URINE NEGATIVE (NEGATIVE); METHAMPHETAMINES SCREEN, URINE PRESUMPTIVE POSITIVE (NEGATIVE); OXYCODONE SCREEN,URINE NEGATIVE (NEGATIVE); PROPOXYPHENE SCREEN,URINE NEGATIVE (NEGATIVE); THC SCREEN,URINE 50 NG/ML PRESUMPTIVE POSITIVE (NEGATIVE)
[2025-08-14 16:07] LABS: SQUAMOUS EPITHELIAL CELLS,UR FEW /HPF; UROTHELIAL CELLS,URINE NOT SEEN /HPF
[2025-08-14 16:33] LABS: A/G RATIO 0.9 (1.2-2.2); ALANINE AMINOTRANSFERASE,ALT 27 U/L (12-78); ASPARTATE AMNIOTRANSFERASE,AST 19 U/L (15-37); BILIRUBIN TOTAL 0.2 mg/dL (0.2-1.0); BLOOD UREA NITROGEN,BUN 9 mg/dL (7-18); CARBON DIOXIDE,CO2 27 mmol/L (21-32); CHLORIDE,CL 104 mmol/L (100-108); CREATININE 0.4 mg/dL (0.6-1.0); EST CRCL DRUG DOSING (CG) 218.77 mL/min; ESTIMATED GFR 142 mL/min (>60); GLUCOSE RANDOM 99 mg/dL (74-106); POTASSIUM,K 3.7 mmol/L (3.6-5.2); PROTEIN TOTAL,TP 6.9 g/dL (6.4-8.2); SODIUM,NA 137 mmol/L (140-148); TSH ULTRASENSITIVE 0.279 uIU/mL (0.358-3.740)
[2025-08-15 08:06] VITALS: BP 113/79; PULSE 75
== END 2025-08-15 13:58 ==
LOC: JP.ED 15:08
DX: R45.851 Suicidal ideations (principal); F32.A Depression, unspecified; E66.9 Obesity, unspecified; Z68.34 Body mass index [BMI] 34.0-34.9, adult; Z79.899 Other long term (current) drug therapy
CPT/HCPCS: 36415; 80053; 80143; 80179; 80305; 80307; 81001; 81025; 83605; 84443; 85025; 99285; A9270

== ENCOUNTER 2025-11-08 02:42 | Emergency (ER) | payer MEDICAID ==
[2025-11-08 03:17] LABS: BASOPHILS ABSOLUTE AUTO 0.04 K/uL (0.00-0.10); BASOPHILS PERCENT AUTO 0.5 % (0.1-1.3); EOSINOPHILS ABSOLUTE AUTO 0.06 K/uL (0.00-0.40); EOSINOPHILS PERCENT AUTO 0.8 % (0.0-5.4); IMMATURE GRAN ABSOLUTE AUTO 0.03 K/uL (0.00-0.23); IMMATURE GRAN PERCENT AUTO 0.4 % (0.0-0.7); LYMPHOCYTES ABSOLUTE AUTO 1.97 K/uL (0.8-3.3); LYMPHOCYTES PERCENT AUTO 25.9 % (11.4-47.7); MONOCYTES ABSOLUTE AUTO 0.39 K/uL (0.20-0.90); MONOCYTES PERCENT AUTO 5.1 % (3.3-12.6); NEUTROPHILS ABSOLUTE AUTO 5.12 K/uL (1.0-7.6); NEUTROPHILS PERCENT AUTO 67.3 % (40.0-78.1); PLATELET COUNT,PLT 332 K/uL (130-375); RED BLOOD CELL COUNT 4.10 M/uL (3.77-5.24); WHITE BLOOD CELL COUNT,WBC 7.6 K/uL (3.2-11.0)
[2025-11-08 04:24] VITALS: BP 121/77; PULSE 93
== END 2025-11-08 04:20 | disposition home or self-care (01) ==
LOC: JP.ED 02:42
DX: O03.4 Incomplete spontaneous abortion without complication (principal); E66.9 Obesity, unspecified; F17.200 Nicotine dependence, unspecified, uncomplicated; Z86.16 Personal history of COVID-19
CPT/HCPCS: 36415; 84703; 85025; 99284